=== PATIENT | female | born 1970 | race Hispanic/Latino ===

== ENCOUNTER 2021-03-20 15:38 | Emergency (ER) | payer OTHER ==
--- OUTSIDE RECORDS SUMMARY | 2021-03-20 15:48 | XMS REPORT | Continuity of Care Document ---
:1970 Author Organization [facility] t Address [address] [place] [address] Care Team Providers Name Role Phone Unavailable Unavailable Unavailable Problems This patient has no known problems. Allergies, Adverse Reactions, Alerts This patient has no known allergies or adverse reactions. Medications Ordered Filled Start Stop Current Ordering Indication Dosage Frequency Signature Comments Components Source Medication Medication Date Date Medication? Clinician (SIG) Name Name Citalopram Citalopram Yes Na Connell [address] [facility] Hydrobromid Hydrobromid 5-13 [facility] Flonase Flonase Yes Na Connell [address] [facility] Pantoprazol Pantoprazol Yes Na Connell [address] [facility] e Sodium e Sodium 10-12 [facility] Procedures This patient has no known procedures. Encounters Start End Encounter Admission Attending Care Care Encounter Source Date/Time Date/Time Type Type Clinicians Facility Department ID 2021-02-01 2021-02-01 Outpatient [facility] [id number] [facility] 2020-08-22 2020-08-22 Outpatient [facility] [id number] [facility] 2020-07-26 2020-07-26 Outpatient [facility] [id number] [facility] 2020-04-25 2020-04-25 [facility] [id number] [facility] 13:20[facility]00 13:20:00 [facility] 2020-02-25 2020-02-25 [facility] [id number] [facility] 13:00:00 13:00:00 [facility] 2020-01-25 2020-01-25 [facility] [id number] [facility] 14:40:00 14:40:00 [facility] 2019-10-28 2019-10-28 [facility] [id number] [facility] 18:31:00 18:31:00 [facility] 2019-10-26 2019-10-26 [facility] [id number] [facility] 13:20:00 13:20:00 [facility] 2019-10-12 2019-10-12 [facility] [id number] [facility] 15:00:00 15:00:00 [facility] Results This patient has no known results.
[2021-03-20] MEDS ORDERED: METOCLOPRAMIDE 10 MG/2mL INJ ONE (17:57)
[2021-03-20] MEDS ORDERED: DIPHENHYDRAMINE 50 MG/ML VIAL ONE (17:58)
[2021-03-20] MEDS ORDERED: KETOROLAC 30 MG/ML INJ ONE (17:58)
[2021-03-20] MEDS ORDERED: NA CHLORIDE 0.9% 1,000 ML ONE (17:58)
[2021-03-20 18:16] LABS: Urine Blood 1+ (Negative); Urine Glucose Negative (Negative); Urine Protein 1+ (Negative); Urine Specific Gravity >=1.030 (1.005-1.030); Urine pH 5.5 (5.0-7.0)
[2021-03-20 18:35] LABS: Hematocrit 45.2 % (36.0-45.0)
[2021-03-20 18:36] LABS: Absolute Lymphocytes (CBC) 1.3 K/uL (0.7-4.9); Basophils % 0.5 % (0-1.3); Lymphocytes % 18.7 % (15.3-44.8); MPV 10.2 fL (7.6-11.3)
[2021-03-20 18:47] LABS: Albumin 4.1 g/dL (3.4-5.0); Bilirubin Total 0.5 mg/dL (0.2-1.0); Potassium 3.5 mmol/L (3.5-5.1); Protein, Total 8.6 g/dL (6.4-8.2)
--- NOTE | 2021-03-20 18:57 | ER ---
Nurse's Notes [facility] Name: Anjana Higuera Age: 50 yrs Sex: Female : 1970 Arrival Date: 03/20/2021 Time: 15:40 Bed 26 Private MD: Ketty Connell Diagnosis: Migraine without aura, not intractable;Headache;UTI/ Urinary tract infection, site not specified Presentation: 03/20 15:46 Chief complaint: Patient states: migraine, low back pain with ambulation x 3 days. sv Coronavirus screen: Client denies travel out of the [place] in the last 14 days. At this time, the client does not indicate any symptoms associated with coronavirus-19. Ebola Screen: No symptoms or risks identified at this time. Risk Assessment: Do you want to hurt yourself or someone else? Patient reports no desire to harm self or others. Onset of symptoms was March 17, 2021. 15:46 Method Of Arrival: Ambulatory sv 15:46 Acuity: VONNIE 3 sv 15:47 Initial Sepsis Screen: Does the patient meet any 2 criteria? No. Patient's initial sv sepsis screen is negative. Does the patient have a suspected source of infection? No. Patient's initial sepsis screen is negative. Triage Assessment: 15:48 General: Appears in no apparent distress. uncomfortable, Behavior is calm, cooperative, sv appropriate for age. Pain: Complains of pain in face. Neuro: Level of Consciousness is awake, alert, obeys commands, Oriented to person, place, time, situation, Gait is steady, Speech is normal. Respiratory: Respiratory effort is even, unlabored. 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 - Social history:: Smoking status: Patient denies any tobacco usage or history of. - Family history:: not pertinent. Screenin:19 Abuse screen: Denies threats or abuse. Denies injuries from another. Nutritional ld1 screening: No deficits noted. Tuberculosis screening: No symptoms or risk factors identified. Fall Risk None identified. Assessment: 17:19 General: Appears in no apparent distress. comfortable, Behavior is calm, cooperative, ld1 appropriate for age. Pain: Complains of pain in forehead Pain does not radiate. Pain currently is 8 out of 10 on a pain scale. Quality of pain is described as throbbing, Pain began 2-3 days ago. Is continuous. Neuro: Level of Consciousness is awake, alert, obeys commands, Oriented to person, place, time, situation, Reports headache frontal area. Cardiovascular: Capillary refill < 3 seconds Patient's skin is warm and dry. Respiratory: Airway is patent Respiratory effort is even, unlabored, Respiratory pattern is regular, symmetrical. GI: Abdomen is flat, non-distended. : No signs and/or symptoms were reported regarding the genitourinary system. EENT: No signs and/or symptoms were reported regarding the EENT system. Derm: No signs and/or symptoms reported regarding the dermatologic system. Musculoskeletal: No signs and/or symptoms reported regarding the musculoskeletal system. 19:06 Reassessment: Patient appears in no apparent distress at this time. No changes from ld1 previously documented assessment. Patient is alert, oriented x 3, equal unlabored respirations, skin warm/dry/pink. Vital Signs: 15:47 BP 137 / 95; Pulse 81; Resp 16; Temp 97.4; Pulse Ox 99% ; Weight 80.74 kg; Height 5 ft. sv 3 in. (160.02 cm); Pain 8/10; 17:19 BP 133 / 77; Pulse 83; Resp 18; Pulse Ox 100% on R/A; Pain 8/10; ld1 19:06 BP 136 / 86; Pulse 84; Resp 18; Pulse Ox 100% ; ld1 15:47 Body Mass Index 31.53 (80.74 kg, 160.02 cm) sv [place] Coma Score: 17:32 Eye Response: spontaneous(4). Verbal Response: oriented(5). Motor Response: obeys elvira commands(6). Total: 15. ED Course: 15:40 Patient arrived in ED. ds1 15:40 Ketty Connell MD is Private Physician. ds1 15:46 Triage completed. sv 15:46 Arm band placed on. sv 16:59 Juan Luis Frances MD is Attending Physician. elvira 17:15 Daphne Mendes RN is Primary Nurse. ld1 17:19 Patient has correct armband on for positive identification. Bed in low position. Call ld1 light in reach. Side rails up X 1. Pulse ox on. NIBP on. Door closed. Noise minimized. Warm blanket given. 17:19 No provider procedures requiring assistance completed. ld1 17:51 Inserted saline lock: 22 gauge in right hand, using aseptic technique. formerly [facility] 18:57 Ketty Connell MD is Referral Physician. [facility] 18:57 Saad Aguilar MD is Referral Physician. [facility] 19:07 IV discontinued, intact, bleeding controlled, No redness/swelling at site. ld1 Administered Medications: 18:19 Drug: Reglan (metoCLOPramide) 10 mg Route: IVP; Site: right hand; ld1 18:57 Follow up: Response: No adverse reaction ld1 18:19 Drug: Benadryl (diphenhydrAMINE) 50 mg Route: IVP; Site: left antecubital; ld1 18:57 Follow up: Response: No adverse reaction ld1 18:20 Drug: NS 0.9% 1000 ml Route: IV; Rate: 1 bolus; Site: right hand; ld1 18:58 Follow up: Response: No adverse reaction; IV Status: Completed infusion ld1 18:20 Drug: Ketorolac 30 mg Route: IVP; Site: right hand; ld1 18:57 Follow up: Response: No adverse reaction ld1 18:45 Drug: Rocephin (cefTRIAXone) 1 grams Route: IV; Rate: per protocol; Site: right hand; ld1 18:57 Follow up: Response: No adverse reaction; IV Status: Completed infusion ld1 Outcome: 18:57 Discharge ordered by . [facility] 19:06 Discharged to home ambulatory. ld1 19:06 Condition: stable 19:06 Discharge instructions given to patient, Instructed on discharge instructions, follow up and referral plans. medication usage, Demonstrated understanding of instructions, follow-up care, medications. 19:07 Patient left the ED. ld1 Signatures: Diane Alvarez RN RN sv Anderson, Corey, MD MD cha Sanford, Demi ds1 David Zaragoza formerly [facility] Daphne Mendes, RAMANDEEP RN ld1 Corrections: (The following items were deleted from the chart) 15:48 15:47 Pulse 81bpm; Resp 16bpm; Pulse Ox 99%; Temp 97.4F; 80.74 kg; Height 5 ft. 3 in.; sv BMI: 31.5; Pain 8/10; sv
--- NOTE | 2021-03-20 18:58 | EDPHYS ---
Physician Documentation [facility] Name: Anjana Higuera Age: 50 yrs Sex: Female : 1970 Arrival Date: 03/20/2021 Time: 15:40 Bed 26 Private MD: Ketty Connell ED Physician Juan Luis Frances HPI: 03/20 17:29 This 50 yrs old Female presents to ER via Ambulatory with complaints of elvira Migraine. 17:29 The patient complains of pain to the top of head, forehead, left frontal area, left elvira side of the back of head, left occipital area, left base of the skull, right frontal area, right side of the back of head, right occipital area and right base of the skull. The patient describes the headache as aching. Onset: The symptoms/episode began/occurred 2 day(s) ago. Associated signs and symptoms: The patient has no apparent associated signs or symptoms. Severity of symptoms: At its worst the pain was moderate, in the emergency department the pain is unchanged. Headache History: The patient has had previous headaches and this one is similar to previous episodes. Headache History:. The symptoms are alleviated by Darkened room, remaining still, the symptoms are aggravated by lights, movement, noise. The patient has experienced similar episodes in the past, several times. 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 - Social history:: Smoking status: Patient denies any tobacco usage or history of. - Family history:: not pertinent. ROS: 17:29 Constitutional: Negative for fever, chills, and weight loss, Eyes: Negative for injury, elvira pain, redness, and discharge, ENT: Negative for injury, pain, and discharge, Neck: Negative for injury, pain, and swelling, Cardiovascular: Negative for chest pain, palpitations, and edema, Respiratory: Negative for shortness of breath, cough, wheezing, and pleuritic chest pain, Abdomen/GI: Negative for abdominal pain, nausea, vomiting, diarrhea, and constipation, Back: Negative for injury and pain, : Negative for injury, bleeding, discharge, and swelling, MS/Extremity: Negative for injury and deformity, Skin: Negative for injury, rash, and discoloration, Psych: Negative for depression, anxiety, suicide ideation, homicidal ideation, and hallucinations, Allergy/Immunology: Negative for hives, rash, and allergies, Endocrine: Negative for neck swelling, polydipsia, polyuria, polyphagia, and marked weight changes, Hematologic/Lymphatic: Negative for swollen nodes, abnormal bleeding, and unusual bruising. 17:29 Neuro: Positive for headache. Exam: 17:29 Constitutional: This is a well developed, well nourished patient who is awake, alert, elvira and in no acute distress. Head/Face: Normocephalic, atraumatic. Eyes: Pupils equal round and reactive to light, extra-ocular motions intact. Lids and lashes normal. Conjunctiva and sclera are non-icteric and not injected. Cornea within normal limits. Periorbital areas with no swelling, redness, or edema. ENT: Nares patent. No nasal discharge, no septal abnormalities noted. Tympanic membranes are normal and external auditory canals are clear. Oropharynx with no redness, swelling, or masses, exudates, or evidence of obstruction, uvula midline. Mucous membranes moist. Neck: Trachea midline, no thyromegaly or masses palpated, and no cervical lymphadenopathy. Supple, full range of motion without nuchal rigidity, or vertebral point tenderness. No Meningismus. Chest/axilla: Normal chest wall appearance and motion. Nontender with no deformity. No lesions are appreciated. Cardiovascular: Regular rate and rhythm with a normal S1 and S2. No gallops, murmurs, or rubs. Normal PMI, no JVD. No pulse deficits. Respiratory: Lungs have equal breath sounds bilaterally, clear to auscultation and percussion. No rales, rhonchi or wheezes noted. No increased work of breathing, no retractions or nasal flaring. Abdomen/GI: Soft, non-tender, with normal bowel sounds. No distension or tympany. No guarding or rebound. No evidence of tenderness throughout. Back: No spinal tenderness. No costovertebral tenderness. Full range of motion. Skin: Warm, dry with normal turgor. Normal color with no rashes, no lesions, and no evidence of cellulitis. MS/ Extremity: Pulses equal, no cyanosis. Neurovascular intact. Full, normal range of motion. Neuro: Awake and alert, GCS 15, oriented to person, place, time, and situation. Cranial nerves II-XII grossly intact. Motor strength 5/5 in all extremities. Sensory grossly intact. Cerebellar exam normal. Normal gait. Psych: Awake, alert, with orientation to person, place and time. Behavior, mood, and affect are within normal limits. Vital Signs: 15:47 BP 137 / 95; Pulse 81; Resp 16; Temp 97.4; Pulse Ox 99% ; Weight 80.74 kg; Height 5 ft. sv 3 in. (160.02 cm); Pain 8/10; 17:19 BP 133 / 77; Pulse 83; Resp 18; Pulse Ox 100% on R/A; Pain 8/10; ld1 19:06 BP 136 / 86; Pulse 84; Resp 18; Pulse Ox 100% ; ld1 15:47 Body Mass Index 31.53 (80.74 kg, 160.02 cm) sv Tobias Coma Score: 17:32 Eye Response: spontaneous(4). Verbal Response: oriented(5). Motor Response: obeys elvira commands(6). Total: 15. MDM: 16:59 Patient medically screened. elvira 17:32 Differential diagnosis: cluster headache, hypertensive headache, migraine, temporal elvira arteritis, tension headache, vasomotor headache. Data reviewed: vital signs, nurses notes, lab test result(s). Data interpreted: desk monitor: rate is 83 beats/min, Pulse oximetry: on room air is 100 %. Test interpretation: by ED physician or midlevel provider:. Counseling: I had a detailed discussion with the patient and/or guardian regarding: the historical points, exam findings, and any diagnostic results supporting the discharge/admit diagnosis, lab results, the need for outpatient follow up, for definitive care, a family practitioner, a neurologist. 03/20 17:28 Order name: CBC with Diff; Complete Time: 18:43 [facility] 03/20 17:28 Order name: Comprehensive Metabolic Panel; Complete Time: 18:57 elvira 03/20 17:28 Order name: Urine Culture [facility] 03/20 18:16 Order name: Urine Dipstick-Ancillary; Complete Time: 18:29 [facility] 03/20 17:28 Order name: Urine Dipstick-Ancillary (obtain specimen); Complete Time: 18:20 [facility] 03/20 17:28 Order name: Urine Test (obtain specimen); Complete Time: 18:20 [facility] 03/20 17:28 Order name: Oxygen; Complete Time: 17:33 elvira Administered Medications: 18:19 Drug: Reglan (metoCLOPramide) 10 mg Route: IVP; Site: right hand; ld1 18:57 Follow up: Response: No adverse reaction ld1 18:19 Drug: Benadryl (diphenhydrAMINE) 50 mg Route: IVP; Site: left antecubital; ld1 18:57 Follow up: Response: No adverse reaction ld1 18:20 Drug: NS 0.9% 1000 ml Route: IV; Rate: 1 bolus; Site: right hand; ld1 18:58 Follow up: Response: No adverse reaction; IV Status: Completed infusion ld1 18:20 Drug: Ketorolac 30 mg Route: IVP; Site: right hand; ld1 18:57 Follow up: Response: No adverse reaction ld1 18:45 Drug: Rocephin (cefTRIAXone) 1 grams Route: IV; Rate: per protocol; Site: right hand; ld1 18:57 Follow up: Response: No adverse reaction; IV Status: Completed infusion ld1 Disposition Summary: 03/20/21 18:57 Discharge Ordered Location: Home elvira Problem: new elvira Symptoms: have improved elvira Condition: Stable elvira Diagnosis - Migraine without aura, not intractable elvira - Headache elvira - UTI/ Urinary tract infection, site not specified elvira Followup: elvira - With: - When: 2 - 3 days - Reason: Recheck today's complaints, Continuance of care, Re-evaluation by your physician Followup: elvira - With: - When: 2 - 3 days - Reason: Recheck today's complaints, Continuance of care, Re-evaluation by your physician Discharge Instructions: - Discharge Summary Sheet elvira - Migraine Headache elvira - Migraine Headache, Fluz-lw-[id number] elvira - Urinary Tract Infection, Adult elvira - Urinary Tract Infection, Adult, [id number] elvira Forms: - Medication Reconciliation Form elvira - Thank You Letter elvira - Antibiotic Education elvira - Prescription Opioid Use elvira Prescriptions: - Fioricet with Codeine [id number] mg Oral capsule - take 1 capsule by ORAL route every 4 hours as needed not to exceed 6 capsules elvira per 24hrs; 15 capsule; Refills: 0, Product Selection Permitted - Zofran 4 mg Oral Tablet - take 1 tablet by ORAL route every 12 hours As needed; 20 tablet; Refills: 0, elvira Product Selection Permitted - Bactrim DS 800-160 mg Oral Tablet - take 1 tablet by ORAL route every 12 hours for 3 days; 6 tablet; Refills: 0, elvira Product Selection Permitted Signatures: Dispatcher [employer] Diane Dukes, Juan Luis Nassar RN, MD MD cha Dibbern, Lauren, RN RN ld1
[2021-03-20] MEDS ORDERED: CEFTRIAXONE/SWI 1gm 1 GM/10 ML SYR ONE (19:01)
[2021-03-20 19:23] VITALS: TEMP 97.4
[2021-03-20 19:28] VITALS: O2SAT 100
[2021-03-20 19:34] VITALS: BP 136/86
== END 2021-03-20 19:07 | disposition home or self-care (01) ==
LOC: ER 15:38
DX: G43.009 Migraine without aura, not intractable, without status migrainosus (principal); N39.0 Urinary tract infection, site not specified
CPT/HCPCS: 87088; 85025; 87086; 36415; 81003; 80053; 99283; J2765; J1200; J0696; J7030

== ENCOUNTER 2022-04-01 10:27 | Emergency (ER) | payer OTHER ==
[2022-04-01 12:21] LABS: Absolute Lymphocytes (CBC) 0.9 K/uL (0.7-4.9); Lymphocytes % 13.7 % (15.3-44.8); MCV 91.2 fL (80-100); MPV 9.7 fL (7.6-11.3); RBC Red Blood Cell Count 4.94 M/uL (3.86-4.86)
[2022-04-01 12:31] LABS: Albumin 3.8 g/dL (3.4-5.0); Bilirubin Total 0.4 mg/dL (0.2-1.0); Potassium 4.2 mmol/L (3.5-5.1)
[2022-04-01] MEDS ORDERED: NA CHLORIDE 0.9% 1,000 ML ONE (12:35)
[2022-04-01] MEDS ORDERED: ONDANSETRON 4 MG/2 ML VIAL ONE (12:35)
[2022-04-01 12:46] LABS: Urine Blood 3+ (Negative); Urine Glucose Negative (Negative); Urine Protein 1+ (Negative); Urine Specific Gravity >=1.030 (1.005-1.030); Urine pH 5.5 (5.0-7.0)
[2022-04-01 13:10] LABS: Urine RBC >50 /HPF (None Seen)
[2022-04-01 13:11] LABS: Urine Bacteria >50 /HPF (<20)
[2022-04-01 13:12] LABS: Urine Mucus 1+ /HPF (None Seen)
--- NOTE | 2022-04-01 13:30 | RAD REPORT ---
EXAM DESCRIPTION: CT - Abdomen Pelvis W Contrast - 04/01/2022 1:17 pm CLINICAL HISTORY: L flank pain with abdominal pain COMPARISON: No comparisons TECHNIQUE: Biphasic, helical CT imaging of the abdomen and pelvis was performed following 100 ml non -ionic IV contrast. Multiple gallstones are present no acute gallbladder finding. No biliary tree abnormality. No oral contrast administered. All CT scans are performed using dose optimization technique as appropriate and may include automated exposure control or mA/KV adjustment according to patient size. FINDINGS: No suspicious findings in the lung bases. The liver, spleen, and pancreas show no suspicious focal findings. Liver attenuation is borderline to mildly fatty infiltrated. No portal vein abnormality. Symmetric renal function is seen with no hydronephrosis or suspicious renal mass. An 18 millimeter si mple cyst is present lateral mid right kidney. No pyelonephritis or acute parenchymal process. No raoul dder abnormalities. No adrenal abnormalities. Uterus and ovaries show no suspicious findings. No dilated bowel loops or bowel wall thickening. Appendix is normal. Minimal hiatal hernia is present . No free air, free fluid or inflammatory stranding. No mass or bulky lymphadenopathy. No abdominal wall hernia seen. No suspicious bony findings. IMPRESSION: Contrast enhanced CT abdomen and pelvis showing no acute or emergent finding.
--- NOTE | 2022-04-01 14:50 | ER ---
Nurse's Notes [facility] Name: Anjana Higuera Age: 51 yrs Sex: Female : 1970 Arrival Date: 04/01/2022 Time: 10:29 Bed 15 Private MD: Ketty Connell Diagnosis: UTI/ Urinary tract infection, site not specified Presentation: 04/01 11:35 Chief complaint: Patient states: "sharp" left flank pain with nausea that began today, vg1 stated burning upon urination. Coronavirus screen: Vaccine status: Patient reports receiving the 2nd dose of the covid vaccine. Ebola Screen: Patient denies exposure to infectious person. Patient denies travel to an Ebola-affected area in the 21 days before illness onset. Initial Sepsis Screen: Does the patient meet any 2 criteria? No. Patient's initial sepsis screen is negative. Does the patient have a suspected source of infection? No. Patient's initial sepsis screen is negative. Risk Assessment: Do you want to hurt yourself or someone else? Patient reports no desire to harm self or others. Onset of symptoms was April 01, 2022. 11:35 Method Of Arrival: Ambulatory vg1 11:35 Acuity: VONNIE 3 vg1 Triage Assessment: 11:35 General: Appears comfortable, Behavior is calm, cooperative. Pain: Complains of pain in vg1 Left Flank. : Reports burning with urination. Historical: - Allergies: 12:35 No Known Allergies; hb - PMHx: 12:35 Migraine; hb - Immunization history:: Client reports receiving the 2nd dose of the Covid vaccine. - Social history:: Smoking status: Patient denies any tobacco usage or history of. Screenin:35 Abuse screen: Denies threats or abuse. Denies injuries from another. Nutritional hb screening: No deficits noted. Tuberculosis screening: No symptoms or risk factors identified. Fall Risk None identified. Assessment: 12:35 General: Appears in no apparent distress. Behavior is calm, cooperative. Pain: Pain hb currently is 4 out of 10 on a pain scale. Neuro: Level of Consciousness is awake, alert, obeys commands, Oriented to person, place, time, situation. Cardiovascular: Patient's skin is warm and dry. Respiratory: Respiratory effort is even, unlabored, Respiratory pattern is regular, symmetrical. GI: Reports. 13:37 Reassessment: Patient appears in no apparent distress at this time. Patient and/or hb family updated on plan of care and expected duration. Pain level reassessed. Patient is alert, oriented x 3, equal unlabored respirations, skin warm/dry/pink. Vital Signs: 11:35 BP 148 / 85; Pulse 80; Resp 16; Temp 97.7; Pulse Ox 96% on R/A; Height 5 ft. 3 in. vg1 (160.02 cm); Pain 10/10; 12:36 BP 107 / 89; Pulse 76; Resp 16; hb ED Course: 10:29 Patient arrived in ED. mr 10:30 Ketty Connell MD is Private Physician. mr 10:35 Nara Jha FNP [facility]. jh7 10:35 Dick Stewart DO is Attending Physician. jh7 11:35 Arm band placed on. vg1 11:38 Triage completed. vg1 12:08 Inserted saline lock: 20 gauge in left antecubital area, using aseptic technique. Blood kc6 collected. 12:09 CBC with Diff Sent. kc6 12:09 CMP Sent. kc6 12:09 Lipase Sent. kc6 12:09 Urine Microscopic Only Sent. kc6 12:26 Francesca Mckeon, RN is Primary Nurse. hb 12:35 Patient has correct armband on for positive identification. Bed in low position. Call hb light in reach. 13:18 CT Abd/Pelvis - IV Contrast Only In Process Unspecified. EDMS 14:50 Ketty Connell MD is Referral Physician. [facility] 15:32 No provider procedures requiring assistance completed. IV discontinued, intact, hb bleeding controlled, No redness/swelling at site. Administered Medications: 12:34 Drug: NS 0.9% 1000 ml Route: IV; Rate: 1 bolus; Site: left antecubital; hb 12:35 Drug: Zofran (Ondansetron) 4 mg Route: IVP; Site: left antecubital; hb 15:02 Follow up: Response: No adverse reaction hb 15:02 Drug: Rocephin (cefTRIAXone) 1 grams Route: IV; Rate: 1 calculated rate; Site: left hb antecubital; Outcome: 14:50 Discharge ordered by . [facility] 15:32 Discharged to home ambulatory. hb 15:32 Condition: stable 15:32 Discharge instructions given to patient, Instructed on discharge instructions, follow up and referral plans. medication usage, Demonstrated understanding of instructions, follow-up care, medications, Prescriptions given X 2. 15:32 Patient left the ED. Signatures: Dispatcher [employer] [facility] Verito JainFrancesca, RN RN Bell Edmonds RN RN vg1 Nara Jha, AIRCRAFT MANAGER AIRCRAFT MANAGER 7 Marie Curtis6
--- NOTE | 2022-04-01 14:51 | EDPHYS ---
Physician Documentation [facility] Name: Anjana Higuera Age: 51 yrs Sex: Female : 1970 Arrival Date: 04/01/2022 Time: 10:29 Bed 15 Private MD: Ketty Connell ED Physician Dick Stewart HPI: 04/01 11:40 This 51 yrs old Female presents to ER via Ambulatory with complaints of Low jh7 Back Pain, Urinary Problem. 11:40 Patient presents for left flank pain and dysuria starting this morning. The patient jh7 states that she has never had anything like this before. Reports a history of fatty liver. Denies fever, vaginal bleeding, or any other symptoms.. Historical: - Allergies: 12:35 No Known Allergies; hb - PMHx: 12:35 Migraine; hb - Immunization history:: Client reports receiving the 2nd dose of the Covid vaccine. - Social history:: Smoking status: Patient denies any tobacco usage or history of. ROS: 11:40 Constitutional: Negative for fever, chills, and weight loss, Cardiovascular: Negative jh7 for chest pain, palpitations, and edema, Respiratory: Negative for shortness of breath, cough, wheezing, and pleuritic chest pain, Abdomen/GI: Negative for abdominal pain, nausea, vomiting, diarrhea, and constipation, Back: Negative for injury and pain, Skin: Negative for injury, rash, and discoloration, Neuro: Negative for headache, weakness, numbness, tingling, and seizure. 11:40 : Positive for urinary symptoms, flank pain, burning with urination. 11:40 All other systems are negative. Exam: 11:40 Constitutional: This is a well developed, well nourished patient who is awake, alert, jh7 and in no acute distress. Neck: Trachea midline, no thyromegaly or masses palpated, and no cervical lymphadenopathy. Supple, full range of motion without nuchal rigidity, or vertebral point tenderness. No Meningismus. Cardiovascular: Regular rate and rhythm with a normal S1 and S2. No gallops, murmurs, or rubs. Normal PMI, no JVD. No pulse deficits. Respiratory: Lungs have equal breath sounds bilaterally, clear to auscultation and percussion. No rales, rhonchi or wheezes noted. No increased work of breathing, no retractions or nasal flaring. Abdomen/GI: Soft, non-tender, with normal bowel sounds. No distension or tympany. No guarding or rebound. No evidence of tenderness throughout. Skin: Warm, dry with normal turgor. Normal color with no rashes, no lesions, and no evidence of cellulitis. Neuro: Awake and alert, GCS 15, oriented to person, place, time, and situation. Normal gait. 11:40 : CVA tenderness, Mild left CVA tenderness. Vital Signs: 11:35 BP 148 / 85; Pulse 80; Resp 16; Temp 97.7; Pulse Ox 96% on R/A; Height 5 ft. 3 in. vg1 (160.02 cm); Pain 10/10; 12:36 BP 107 / 89; Pulse 76; Resp 16; hb MDM: 11:27 Patient medically screened. [facility] 15:15 Differential diagnosis: UTI, Pyelonephritis, nephrolithiasis. Data reviewed: vital [facility] signs, nurses notes, lab test result(s), radiologic studies, CT scan. Data interpreted: Pulse oximetry: is 96 %. Interpretation: normal. Counseling: I had a detailed discussion with the patient and/or guardian regarding: the historical points, exam findings, and any diagnostic results supporting the discharge/admit diagnosis, to return to the emergency department if symptoms worsen or persist or if there are any questions or concerns that arise at home. Response to treatment: the patient's symptoms have resolved after treatment. ED course: Reviewed the patient's lab results with her. Informed her that her liver enzymes were elevated, and that she would need to follow-up with her PCP regarding her fatty liver. Explained that she was diagnosed with a UTI and that she would be prescribed antibiotics. Advised to increase p.o. fluid intake. If any new concerning symptoms develop, return to the ER for further eval.. 04/01 11:29 Order name: CBC with Diff; Complete Time: 14: [facility] 04/01 11:29 Order name: CMP; Complete Time: 14: [facility] 04/01 11:29 Order name: Lipase; Complete Time: 14: [facility] 04/01 11:29 Order name: Urine Microscopic Only; Complete Time: 14: [facility] 04/01 12:47 Order name: Urine Dipstick-Ancillary; Complete Time: 14:28 [facility] 04/01 11:29 Order name: CT Abd/Pelvis - IV Contrast Only; Complete Time: 14:28 [facility] 04/01 11:29 Order name: IV Saline Lock; Complete Time: 12:08 [facility] 04/01 11:29 Order name: Labs collected and sent; Complete Time: 12:09 [facility] 04/01 11:29 Order name: Urine Dipstick-Ancillary (obtain specimen); Complete Time: 12:46 [facility] 04/01 13:15 Order name: Urine Culture EDMT Administered Medications: 12:34 Drug: NS 0.9% 1000 ml Route: IV; Rate: 1 bolus; Site: left antecubital; hb 12:35 Drug: Zofran (Ondansetron) 4 mg Route: IVP; Site: left antecubital; hb 15:02 Follow up: Response: No adverse reaction hb 15:02 Drug: Rocephin (cefTRIAXone) 1 grams Route: IV; Rate: 1 calculated rate; Site: left hb antecubital; Disposition: 22:01 Co-signature as Attending Physician, Dick GIRON was immediately available on-site ms3 in the Emergency Department for consultation in the care of the patient. . Disposition Summary: 04/01/22 14:50 Discharge Ordered Location: Home [facility] Problem: new [facility] Symptoms: have improved [facility] Condition: Stable [facility] Diagnosis - UTI/ Urinary tract infection, site not specified [facility] Followup: [facility] - With: Ketty Connell MD - When: 2 - 3 days - Reason: Recheck today's complaints Discharge Instructions: - Discharge Summary Sheet [facility] - Dysuria [facility] - Urinary Tract Infection, Adult [facility] Forms: - Medication Reconciliation Form [facility] - Thank You Letter [facility] - Antibiotic Education [facility] Prescriptions: - Pyridium 200 mg Oral Tablet - take 1 tablet by ORAL route every 8 hours for 3 days; 9 tablet; Refills: 0, [facility] Product Selection Permitted - Macrobid 100 mg Oral Capsule - take 1 capsule by ORAL route every 12 hours for 7 days; 14 capsule; Refills: 0, 7 Product Selection Permitted Signatures: Dispatcher [employer] EDMT Francesca Mckeon RN RN Bell Edmonds RN RN vg1 Dick Stewart DO DO ms3 [place], [place], [employer] jh7
[2022-04-01] MEDS ORDERED: NA CHLORIDE 0.9% 50 ML ONE (14:56)
[2022-04-01] MEDS ORDERED: CEFTRIAXONE 1000 MG/VIAL ONE (14:56)
[2022-04-01 16:05] VITALS: BP 107/89; TEMP 97.7; O2SAT 96
== END 2022-04-01 15:32 | disposition home or self-care (01) ==
LOC: ER 10:27
DX: N39.0 Urinary tract infection, site not specified (principal)
CPT/HCPCS: 87088; 85025; 87086; 36415; 83690; 80053; 74177; 96375; 96374; 99284; Q9967; J7030; J2405; 81003; 81015